=== PATIENT | female | born 1965 | race Caucasian/White ===

== ENCOUNTER → 2020-03-27 | Outpatient (CLI) | payer OTHER ==
[~2020-03-27] MED LIST: CHOL20002 PO; FOLI1TAB47 PO; PARO10TA56 PO
== END | disposition home or self-care (01) ==
LOC: CARD 12:32
PROVIDERS: ATTEND Internal Medicine Rheumatology
DX: M34.1 CR(E)ST syndrome (principal)
CPT/HCPCS: 94060; 94726; 94729